=== PATIENT | female | born 1935 | race Caucasian/White ===

== ENCOUNTER 2018-03-09 15:27 | Emergency (ER) | payer MEDICARE, BC ==
--- NOTE | 2018-03-09 16:07 | Emergency Department Record ---
History of Present Illness - General Chief Complaint: Altered Mental Status Stated Complaint: CONFUSED, HAND AND ARMS GOING NUMB Time Seen by Provider: 03/09/18 15:59 Source: Patient, Family (), RN notes reviewed Mode of Arrival: Wheelchair - History of Present Illness Initial Comments: noon she was confused and no headache and no chest pain and no dysnea and on home oxygen 2 liters per minute. Patient had BM and her abdomin feel better. patient has a pain pump for her back and last week she had more fluids added. Sees Dr. Cooney and family Dr is Dr Marysol KING Complaint: Confusion Onset/Timin -: Week(s) Severity: Moderate Consistency: Intermittent - Related Data Allergies Allergy/AdvReac Type Severity Reaction Status Date / Time morphine AdvReac SWELLING Verified 03/09/18 15:39 (GENERAL) Travel Screening - Travel/Exposure Within Last 30 Days Have you traveled within the last 30 days?: No - Travel/Exposure Within Last Year Have you traveled outside the [place] in the last year?: No - Additonal Travel Details Have you been exposed to anyone with a communicable illness?: No - Travel Symptoms Symptom Screening: None Review of Systems Reviewed: No additional complaints except as noted below Constitutional: Reports: As per HPI. Denies: Chills, Fever, Malaise, Night sweats, Weakness, Weight change Eyes: Reports: As per HPI. Denies: Eye discharge, Eye pain, Photophobia, Vision change ENT: Reports: As per HPI. Denies: Congestion, Dental pain, Ear pain, Epistaxis , Hearing loss, Throat pain Respiratory: Reports: As per HPI. Denies: Cough, Dyspnea, Hemoptysis, Stridor, Wheezes Cardiovascular: Reports: As per HPI. Denies: Arrhythmia, Chest pain, Dyspnea on exertion, Edema, Murmurs, Orthopnea, Palpitations, Paroxysmal nocturnal dyspnea, Rheumatic Fever, Syncope Endocrine: Reports: As per HPI. Denies: Fatigue, Heat or cold intolerance, Polydipsia, Polyuria Gastrointestinal: Reports: As per HPI. Denies: Abdominal pain, Constipation, Diarrhea, Hematemesis, Hematochezia, Melena, Nausea, Vomiting Genitourinary: Reports: As per HPI. Denies: Abnormal menses, Discharge, Dyspareunia, Dysuria, Frequency, Hematuria, Incontinence, Retention, Urgency Musculoskeletal: Reports: As per HPI. Denies: Arthralgia, Back pain, Gout, Joint swelling, Myalgia, Neck pain Skin: Reports: As per HPI. Denies: Bruising, Change in color, Change in hair/ nails, Lesions, Pruritus, Rash Neurological: Reports: As per HPI. Denies: Abnormal gait, Confusion, Headache, Numbness, Paresthesias, Seizure, Tingling, Tremors, Vertigo, Weakness Psychiatric: Reports: As per HPI. Denies: Anxiety, Auditory hallucinations, Depression, Homicidal thoughts, Suicidal thoughts, Visual hallucinations Hematological/Lymphatic: Reports: As per HPI. Denies: Anemia, Blood Clots, Easy bleeding, Easy bruising, Swollen glands Past Medical History - SOCIAL HISTORY Smoking Status: Never smoker Alcohol Use: None Drug Use: None - RESPIRATORY Hx Respiratory Disorders: No - CARDIOVASCULAR Hx Cardio Disorders: Yes Hx Edema: Yes (alittle) Hx Hypertension: Yes (meds very good control) Comment:: due to pain - NEURO Hx Neuro Disorders: Yes Hx Neuropathy: Yes (fingers & toes occas) - GI Hx GI Disorders: Yes Hx Diverticulitis: Yes Hx Reflux: Yes Hx Hiatal Hernia: Yes Hx Irritable Bowel: Yes Hx Nausea/Vomiting: Yes (?pain med related) Hx Wt Loss/Wt Gain: Yes (gain 20#/1yr) - Hx Genitourinary Disorders: No Hx Bladder Problem: No Comment:: hyst - ENDOCRINE Hx Endocrine Disorders: No - MUSCULOSKELETAL Hx Musculoskeletal Disorders: Yes Hx Arthritis: Yes (hands,neck & back) Hx Fibromyalgia: Yes (?) Hx Osteoporosis: Yes - PSYCH Hx Psych Problems: Yes Hx Anxiety: Yes Hx Behavior Problems: No Hx Depression: Yes - HEMATOLOGY/ONCOLOGY Hx Hematology/Oncology Disorders: No Hx Blood Transfusions: Yes Hx Blood Transfusion Reaction: No Family Medical History Any Significant Family History?: Yes Family Hx Comment (NOT TO BE USED IN PLACE OF ITEMS BELOW): Parents of cancer. Hx Anxiety: Children *Anxiety Comment: son Hx Cancer: Father, Mother Hx Diabetes: Grandparents *Diabetes Comment: grndma/granddaughter & Hx HTN: Brother/Sister Physical Exam - General General Appearance: Alert, Oriented x3, Cooperative, No acute distress - Head Head exam: Normal inspection - Eye Eye exam: Normal appearance, PERRL Pupils: Normal accommodation - ENT ENT exam: Normal exam, Mucous membranes moist, Normal external ear exam, Normal orophraynx, TM's normal bilaterally Ear exam: Normal external inspection. negative: External canal tenderness Nasal Exam: Normal inspection. negative: Discharge, Sinus tenderness Mouth exam: Normal external inspection, Tongue normal Teeth exam: Normal inspection. negative: Dental caries Throat exam: Normal inspection. negative: Tonsillar erythema, Tonsillar exudate - Neck Neck exam: Normal inspection, Full ROM. negative: Tenderness - Respiratory Respiratory exam: Normal lung sounds bilaterally. negative: Respiratory distress - Cardiovascular Cardiovascular Exam: Regular rate, Normal rhythm, Normal heart sounds - GI/Abdominal GI/Abdominal exam: Soft, Normal bowel sounds. negative: Tenderness - Rectal Rectal exam: Deferred - exam: Deferred - Extremities Extremities exam: Normal inspection, Full ROM, Normal capillary refill. negative: Tenderness - Back Back exam: Reports: Normal inspection, Full ROM. Denies: Muscle spasm, Rash noted, Tenderness - Neurological Neurological exam: Alert, Normal gait, Oriented X3, Reflexes normal - Psychiatric Psychiatric exam: Normal affect, Normal mood - Skin Skin exam: Dry, Intact, Normal color, Warm Medical Decision Making - Data Complexity MDM Data: Labs Ordered and/or Reviewed, X-Ray Ordered and/or Reviewed (CT head neg for major infarction and small lacunar hypodense area ) - Lab Data Result diagrams: 03/09/18 16:26 03/09/18 16:26 Disposition Clinical Impression: Vasovagal attack Constipation Qualifiers: Constipation type: unspecified constipation type Qualified Code(s): K59.00 - Constipation, unspecified Disposition: Home, Self-Care Condition: (1) Good Instructions: Constipation (ED), High Fiber Diet (ED) Additional Instructions: drink lots of fluid follow up with family in 2 days Forms: Patient Portal Access Time of Disposition: 18:04 Quality - Quality Measures Quality Measures: N/A - Blood Pressure Screening Does Patient Have Any of the Following: No Blood Pressure Classification: Pre-Hypertensive BP Reading Systolic Measurement: 140 Diastolic Measurement: 88 Screening for High Blood Pressure: < Pre-Hypertensive BP, F/U Documented > [ [id number]] Pre-Hypertensive Follow-up Interventions: Referral to alternative/primary care provider.
[2018-03-09 16:46] LABS: BASO % 0.8 % (0-6); EOS % 1.7 % (0-6); GRAN % 48.6 % (47-80); HEMATOCRIT 43.8 % (35.0-47.0); HEMOGLOBIN 13.9 gm/dl (11.6-16.0); LYMPH % 40.5 % (16-45); MEAN CELL VOLUME 97.6 fl (81-97); MEAN CORPUSCULAR HGB CONC 31.7 g/dl (32-36); MEAN PLATELET VOLUME 8.9 fl (7.4-10.4); MONO % 8.4 % (0-9); PLATELET COUNT 245 K/uL (130-400); RED BLOOD COUNT 4.49 M/uL (3.80-5.40); RED CELL DISTRIBUTION WIDTH 13.5 % (11.5-14.5); WHITE BLOOD COUNT W/O DIFF 6.4 K/uL (4.2-12.2)
[2018-03-09 16:59] LABS: URINE APPEARANCE CLEAR; URINE BILIRUBIN NEGATIVE (NEGATIVE); URINE BLOOD NEGATIVE (NEGATIVE); URINE COLOR YELLOW; URINE GLUCOSE (UA) NEGATIVE (NEGATIVE); URINE KETONE NEGATIVE (NEGATIVE); URINE LEUKOCYTE ESTERASE NEGATIVE (NEGATIVE); URINE NITRITE NEGATIVE (NEGATIVE); URINE PROTEIN NEGATIVE (NEGATIVE); URINE UROBILINOGEN 0.2 E.U./dL (0.20 - 1.00)
[2018-03-09 17:00] LABS: PROTHROMBIN TIME (PATIENT) 10.8 SECONDS (9.5-12.1)
[2018-03-09 17:44] LABS: BLOOD UREA NITROGEN 12 mg/dL (8-23); CREATININE 0.7 mg/dL (0.5-0.9); EST GLOMERULAR FILTRATION RATE > 60 mL/min
[2018-03-09 17:45] LABS: TOTAL PROTEIN 7.4 g/dL (6.6-8.7)
[2018-03-09 17:47] LABS: GLUCOSE,RANDOM 108 mg/dL (74-109)
[2018-03-09 17:49] LABS: ALBUMIN 4.3 g/dL (4.0-5.0); ALKALINE PHOSPHATASE 91 U/L (35-104); ALT/SGPT 23 U/L (<33); AST/SGOT 25 U/L (10.0-35.0)
[2018-03-09 17:51] LABS: ACETAMINOPHEN < 5.0 ug/mL (10.0-30.0)
[2018-03-09 17:52] LABS: ALB/GLOB RATIO 1.4 (1.1-1.8); SALICYLATE < 0.3 mg/dL (2.8-20)
== END 2018-03-09 18:18 | disposition home or self-care (01) ==
LOC: ER 15:27
DX: R55 Syncope and collapse (principal); R20.0 Anesthesia of skin; K59.00 Constipation, unspecified; R41.82 Altered mental status, unspecified; I10 Essential (primary) hypertension
CPT/HCPCS: 70450; 80053; 80320; 80329; 81003; 82140; 85025; 85610; 85730; 99283; 99284